=== PATIENT | female | born 1995 | race Caucasian/White ===

== ENCOUNTER 2024-03-13 17:27 | Emergency (ER) | payer OTHER, BC, SELFPAY ==
[2024-03-13 17:28] VITALS: BP 128/108; PULSE 96; RESP 16; TEMP 36.6; O2SAT 99; BMI 32.8
[2024-03-13 19:27] VITALS: BP 131/83; PULSE 84; RESP 16; O2SAT 100
[2024-03-13 21:00] VITALS: BP 124/75; PULSE 81; RESP 16; TEMP 36.3; O2SAT 99
--- NOTE | 2024-03-13 21:34 | EDS_ITS ---
HPI History of Present Illness Chief Complaint: Head Injury Informant: patient Onset/Context/Timing Onset: Today Mechanism/Context: Blunt Injury Quality of Pain: Dull Location: Left periorbital area Current Severity: Mild Maximum Severity: Mild Worsened by: Palpation Relieved by: Nothing Associated Symptoms Associated Symptoms: Negative for Parasthesias, Weakness, Loss of function, Inability to ambulate, Loss of consciousness or Amnesia Narrative Narrative: Patient presents with a head injury that occurred today. Patient states she accidentally walked into a wooden door. Patient states she hit her left eye on the wooden door. Patient denies any loss of consciousness. Patient states her pain is dull. Patient states it is worse with palpation. Patient denies any paresthesias or weakness. Patient denies any loss of consciousness. Patient denies any nausea or vomiting. Patient denies any visual changes. Patient denies any neck or back pain. Patient denies any other injuries. [facility] Medical History Pre-diabetes Migraines Home Medications ?Medication ?Instructions ?Recorded ?Last Taken ?Type aspirin 81 mg tablet,delayed 81 mg PO DAILY 03/13/24 Unknown History release (Adult Aspirin Regimen) clomiphene citrate 50 mg tablet 25 mg PO DAILY 03/13/24 Unknown History (Clomid) epinephrine 0.3 mg/0.3 mL 0.3 mg subcut PRN PRN anaphylaxis 03/13/24 Unknown History injection, auto-injector folic acid 1 mg tablet 1 mg PO DAILY 03/13/24 Unknown History folic acid-vit B6-vit B12 2.5 1 tab PO DAILY 03/13/24 Unknown History mg-25 mg-2 mg tablet (Folbic) metformin 500 mg tablet,extended 500 mg PO DAILY 03/13/24 Unknown History release 24 hr Allergy/AdvReac Type Severity Reaction Status Date / Time bee venom protein (honey Allergy Severe Swelling Verified 03/13/24 20:52 bee) (bees) bupivacaine Allergy Anaphylaxis Verified 03/13/24 20:52 latex Allergy Rash Verified 03/13/24 20:52 Social History Smoking Status: Never smoker ROS ROS ED Constitutional Constitutional ED: Denies chills or fever(s) Eyes Eyes: Denies blurry vision or change in vision ENT ENT ED: Denies rhinorrhea or sore throat Cardiovascular Cardiovascular: Denies chest pain or palpitations Respiratory/Chest Respiratory/Chest: Denies cough or dyspnea Gastrointestinal Gastrointestinal: Denies nausea or vomiting Genitourinary Genitourinary ED: Denies dysuria or hematuria Musculoskeletal Musculoskeletal: Denies back pain or neck pain Integumentary Denies abscess or rash Neurologic Neurologic: Denies headache(s) or weakness Allergic/Immunologic Allergic/Immunologic ED: Denies mouth swelling or urticaria EXAM Physical Exam Const Vital Signs: 03/13/24 17:28 03/13/24 19:27 03/13/24 20:37 Temperature 98 F Temperature Source Temporal Pulse Rate 96 84 Respiratory Rate 16 16 Respiratory Effort Normal Respiratory Depth Normal Respiratory Pattern Normal Blood Pressure 128/108 H 131/83 H Blood Pressure Mean 114 99 Pulse Ox 99 100 Oxygen Delivery Method Room Air Room Air Positive well nourished and well developed General Appearance ED: well developed and NAD HEENT HEENT Narrative: There is some edema and ecchymosis over the left upper eyelid and lateral aspect of the eyebrow. There is no bony crepitance or step-off noted. There is tenderness to palpation over the area. There is no bleeding noted. There are no lacerations noted. trauma and tenderness Eyes PERRL and EOMs intact bilaterally Neck full ROM Resp normal respiratory effort and clear to auscultation bilaterally Cardio regular rhythm Rate: regular rate Extremity normal to inspection and full ROM Neuro oriented x3, CN's II-XII intact bilaterally, moves all extremities, no focal motor deficits and no sensory deficits noted [place] Coma Scale: document GCS findings Spontaneous Obeys Commands Oriented 15 Sensorium / Orientation: alert Motor Exam: strength 5/5 throughout Psych mental status grossly normal and thought process normal MDM MDM MDM Narrative Medical decision making narrative: Patient was advised that this is a closed head injury. Patient was advised there is no indication for CT scan at this time. Patient is agreeable with this. Patient was given head injury instructions. Patient was instructed to drink plenty of fluids. Patient was instructed to take Tylenol or ibuprofen as needed for headaches. Patient was instructed to follow-up with her primary care physician as well as Workmen's [employer]. physician in 5 to 7 days. Patient understood and was agreeable with the plan. All questions were answered. Discharge Plan Triage Chief Complaint: Head Injury ED Provider: Kenrick Chávez Dx/Rx/DC Orders Clinical Impression: Closed head injury, Pre-diabetes Instructions: ED Head Injury (Adult) Prescriptions: No Action aspirin [Adult Aspirin Regimen] 81 mg tablet,delayed release (DR/EC) 81 mg PO DAILY folic acid 1 mg tablet 1 mg PO DAILY epinephrine 0.3 mg/0.3 mL auto-injector 0.3 mg subcut PRN PRN (Reason: anaphylaxis) metformin 500 mg tablet extended release 24 hr 500 mg PO DAILY Folbic 2.5-25-2 mg tablet 1 tab PO DAILY clomiphene citrate [Clomid] 50 mg tablet 25 mg PO DAILY Primary Care Provider: [facility] ,Out of Referrals: Clinic,NOW [Non-Staff] - 5-7 Days [facility] Doctor,Out of [Primary Care Provider] - 5-7 Days Print Language: [place] Zealander Disposition Disposition: Home, Self Care
== END 2024-03-13 21:44 | disposition home or self-care (01) ==
PROVIDERS: Emergency Provider Emergency Medicine; Visit Provider Emergency Medicine
DX: S09.90XA Unspecified injury of head, initial encounter (principal); W22.8XXA Striking against or struck by other objects, initial encounter; R73.03 Prediabetes; Z79.82 Long term (current) use of aspirin; Z79.84 Long term (current) use of oral hypoglycemic drugs; Z79.899 Other long term (current) drug therapy
CPT/HCPCS: 99282